=== PATIENT | female | born 1970 | race Caucasian/White ===

== ENCOUNTER 2017-01-11 15:45 | Outpatient (RCR) | payer OTHER ==
[~2017-01-11] VITALS: Ht 33 cm; Wt 0.5 kg
== END 2017-01-28 | disposition home or self-care (01) ==
LOC: PTY 15:45
DX: M72.2 Plantar fascial fibromatosis (principal); M76.61 Achilles tendinitis, right leg; M67.00 Short Achilles tendon (acquired), unspecified ankle
CPT/HCPCS: 97110; 97140; 97161; G0283

== ENCOUNTER 2017-01-31 15:26 | Outpatient (RCR) | payer OTHER | END 2017-02-27 | disposition home or self-care (01) | LOC: PTY 15:26 | DX: M72.2 Plantar fascial fibromatosis (principal); M76.61 Achilles tendinitis, right leg; M76.70 Peroneal tendinitis, unspecified leg | CPT/HCPCS: 97110; 97140; G0283 ==

== ENCOUNTER 2017-03-16 16:00 | Outpatient (RCR) | payer OTHER | END 2017-03-30 | disposition home or self-care (01) | LOC: PTY 16:00 | DX: M72.2 Plantar fascial fibromatosis (principal); M76.61 Achilles tendinitis, right leg; M67.00 Short Achilles tendon (acquired), unspecified ankle ==

== ENCOUNTER 2017-04-11 13:00 | Outpatient (RCR) | payer OTHER | END 2017-04-29 | disposition home or self-care (01) | LOC: PTY 13:00 | DX: M72.2 Plantar fascial fibromatosis (principal); M67.00 Short Achilles tendon (acquired), unspecified ankle; M76.70 Peroneal tendinitis, unspecified leg ==

== ENCOUNTER 2017-05-06 10:00 | Outpatient (RCR) | payer OTHER | END 2017-05-30 | disposition home or self-care (01) | LOC: PTY 10:00 | DX: M72.2 Plantar fascial fibromatosis (principal); M67.00 Short Achilles tendon (acquired), unspecified ankle ==

== ENCOUNTER 2017-06-02 15:00 | Outpatient (RCR) | payer OTHER | END 2017-06-30 | disposition home or self-care (01) | LOC: PTY 15:00 | DX: M72.2 Plantar fascial fibromatosis (principal); M67.00 Short Achilles tendon (acquired), unspecified ankle ==

== ENCOUNTER 2017-07-25 11:00 | Outpatient (RCR) | payer OTHER | END 2017-07-30 | disposition home or self-care (01) | LOC: PTY 11:00 | DX: M72.2 Plantar fascial fibromatosis (principal); M76.61 Achilles tendinitis, right leg ==

== ENCOUNTER 2017-08-02 16:00 | Outpatient (RCR) | payer OTHER | END 2017-08-30 | disposition home or self-care (01) | LOC: PTY 16:00 | DX: M72.2 Plantar fascial fibromatosis (principal); M67.00 Short Achilles tendon (acquired), unspecified ankle; M76.61 Achilles tendinitis, right leg ==

== ENCOUNTER 2017-09-12 16:00 | Outpatient (RCR) | payer OTHER | END 2017-09-29 | disposition home or self-care (01) | LOC: PTY 16:00 | DX: M54.16 Radiculopathy, lumbar region (principal) ==

== ENCOUNTER 2017-11-11 16:00 | Outpatient (RCR) | payer OTHER | END 2017-11-30 | disposition home or self-care (01) | LOC: PTY 16:00 | DX: M54.16 Radiculopathy, lumbar region (principal) ==